=== PATIENT | female | born 1975 | race Caucasian/White ===

== ENCOUNTER 2022-07-28 07:54 | Outpatient (CLI) | payer BC, SELFPAY ==
--- NOTE | 2022-07-28 08:15 | CRLHL7_ITS ---
For Patients: As a result of the Century Cures Act, medical imaging exams and procedure reports are released immediately into your electronic medical record. You may view this report before your referring provider. If you have questions, please contact your health care provider. BILATERAL SCREENING MAMMOGRAM WITH COMPUTER-AIDED DETECTION TECHNIQUE: CC and MLO views were obtained. These mammographic images have been obtained using full-field digital technique. These mammographic images were interpreted with the benefit of computer-aided detection. COMPARISON FILM: 02/12/18. FINDINGS: There are scattered areas of fibroglandular density. IMPRESSION: There is no radiographic evidence for malignancy. ASSESSMENT: BI-RADS Category 2: Benign RECOMMENDATION: Routine screening mammogram in 1 year. A lay language report of this examination will be provided to the patient. NORMAN GRANADOS M.D. Diagnostic Radiologist [email or web address]/[email or web address] Transcribed: 07/28/2022, 2:[address]/Dictated by: Norman Granados MD @ 07/28/2022 11:11:00 AM (Electronically Signed)
== END 2022-07-28 07:55 | disposition home or self-care (01) ==
LOC: MAMMO 07:55
PROVIDERS: PCP Physician Assistant Medical; Visit Provider Registered Nurse
DX: Z12.31 Encounter for screening mammogram for malignant neoplasm of breast (principal); Z01.419 Encounter for gynecological examination (general) (routine) without abnormal findings; Z13.6 Encounter for screening for cardiovascular disorders; Z13.1 Encounter for screening for diabetes mellitus; Z13.29 Encounter for screening for other suspected endocrine disorder
CPT/HCPCS: 77063; 77067; 80061; 82947; 84443

== ENCOUNTER 2022-07-28 09:05 | Outpatient (CLI) | payer BC, SELFPAY ==
[2022-07-28 12:12] LABS: Cholesterol* 229 mg/dL (90-199)
[2022-07-28 12:13] LABS: Glucose* 87 mg/dL (60-115); HDL Cholesterol* 91 mg/dL (>=50); LDL Cholesterol Calculated 125 mg/dL (<100); Triglycerides* 63 mg/dL (40-149)
== END 2022-07-28 09:06 | disposition home or self-care (01) ==
PROVIDERS: PCP Physician Assistant Medical; Visit Provider Registered Nurse
DX: Z13.9 Encounter for screening, unspecified (principal)
CPT/HCPCS: 80061; 82947; 84443

== ENCOUNTER 2023-09-24 10:23 | Outpatient (CLI) | payer OTHER, SELFPAY | END 2023-09-24 10:24 | disposition home or self-care (01) | PROVIDERS: PCP Physician Assistant Medical; Visit Provider Physician Assistant Medical | DX: Z13.220 Encounter for screening for lipoid disorders (principal); Z13.228 Encounter for screening for other metabolic disorders; Z13.29 Encounter for screening for other suspected endocrine disorder | CPT/HCPCS: 80053; 80061; 84443 ==

== ENCOUNTER 2023-12-25 17:19 | Outpatient (CLI) | payer OTHER, SELFPAY ==
--- OUTSIDE RECORDS SUMMARY | 2023-12-25 17:21 | XMS_ITS | Clinical Summary ---
Author Organization [employer] [facility] Address [place], [place] [address] Care Team Providers Care Clerical Support Name Role Phone Taisha Burris DO Primary Care Provider Unava ilable Allergies Active Allergy Reactions Criticality Noted Date Comments Banana Itching 04/11/2018 Clams *Unknown 04/11/2018 Egg Itching 04/11/2018 Tree Nut *Unknown 04/11/2018 BRAZIL NUT [place] Oil *Unknown 04/11/2018 Wheat Bran *Unknown 04/11/2018 Medications Medication Sig Dispensed Refills Start Date End Date Status loratadine (CLARITIN) 10 mg tablet Take 10 mg by mouth once daily. Active multivitamin (MVI) tablet Take 1 tablet by mouth once daily. Active HYDROcodone-acetam inophen, 5-325 mg, (NORCO) per tabletIndications: Malignant melanoma of left ear (HC) Take 1-2 tablets by mouth every 4 hours if needed for Pain Max acetaminophen dose: 4000 mg in 24 hrs. 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 Social History Tobacco Use Types Packs/Day Years Used Date Smoking Tobacco: Never Assessed Sex and Gender Information Value Date Recorded Sex Assigned at Not on file Gender Identity Not on file Sexual Orientation Not on file Obstetrics History Last Filed Vital Signs Vital Sign Reading Time Taken Comments Blood Pressure 120/83 04/12/2018 3:00 PM CDT Pulse 104 04/12/2018 3:00 PM CDT Temperature 36.9 ??C (98.4 ??F) 04/12/2018 1:48 PM CD T Respiratory Rate 16 04/12/2018 3:00 PM CDT Oxygen Saturation 99% 04/12/2018 3:00 PM CDT Inhaled Oxygen Concentration - - Weight 72.6 kg (160 lb) 04/12/2018 12:00 PM CDT Height 157.5 cm (5' 2) 04/12/2018 12:00 PM CDT Body Mass Index 29.26 04/12/2018 12:00 PM CDT Plan of Treatment Health Maintenance Due Date Last Done Comments Tdap 1984 Depression screening for age 12+ 1985 HIV for age 15-65 1988 BMI (ht and wt on same day) for age 18+ 10/18/1991 Hepatitis C screening for ag e 18-79 10/18/1991 Tetanus booster 1993 Colonoscopy through age 75 2018 Lipids for age 45-75 2018 Mammogram for age 45-75 2018 COVID-19 vaccine series (2022-24 season) 2023 Zoster (shingles) series for age 50+ (1 of 2) 10/18/2023 Influenza for age 50-64 03/16/2024 Pap test for age 21-65 07/28/2025 3, 07/28/2022 Pneumococcal series for age 6-64 Aged Out No longer eligible b ased on patient's age to complete this topic Procedures Procedure Name Priority Date/Time Associated Diagnosis Comments HPV THIN PREP Routine 07/28/2022 12:00 PM PUMP PRESS OPERATOR from Last 3 Months or Most Recently Relevant to Health Maintenance Results * HPV HIGH RISK (07/28/2022 12:00 PM PUMP PRESS OPERATOR) TYPE 16 Negative Negative 08/02/2022 2:46 PM PUMP PRESS OPERATOR [facility] TYPE 18 Negative Negative 08/02/2022 2:46 PM PUMP PRESS OPERATOR [facility] OTHER HIGH RISK TYPES Negative Negative 08/02/2022 2:46 PM PUMP PRESS OPERATOR [facility] Other (Cervical) 07/28/2022 12:00 PM PUMP PRESS OPERATOR 07/31/2022 10:28 AM PUMP PRESS OPERATOR Narrative [facility] - 08/02/2022 2:46 PM PUMP PRESS OPERATOR HPV types 16, 18, 31, 33, 35, 39, 45, 51, 52, 56, 58, 59, 66 and 68 DNA were undetectable or below the pre-set threshold. Methodology: Tierra Job 4800 HPV Test Loreta Kenny NANOSCIENCE TECHNICIAN MICROBIOLOGY [facility] [address] [place] [address], from Last 3 Months or Most Recently Relevant to Health Maintenance Advance Directives * Full Code (Latest Code Status on File) Date Activated Date Inactivated Comments 04/12/2018 11:44 AM 04/13/2018 2:30 AM Care Teams Clerical Support Relationship Specialty Start Date End Date Taisha Burris DO PCP - General 05/05/09
--- NOTE | 2023-12-25 17:40 | CRLHL7_ITS ---
For Patients: As a result of the Century Cures Act, medical imaging exams and procedure reports are released immediately into your electronic medical record. You may view this report before your referring provider. If you have questions, please contact your health care provider. BILATERAL SCREENING MAMMOGRAM WITH COMPUTER-AIDED DETECTION AND TOMOSYNTHESIS TECHNIQUE: CC and MLO views were obtained. These mammographic images have been obtained using full-field digital technique. These mammographic images were interpreted with the benefit of computer-aided detection. Breast Tomosynthesis was used in this interpretation. COMPARISON FILM: 07/28/22, 02/12/18. FINDINGS: There are scattered areas of fibroglandular density. IMPRESSION: There is no radiographic evidence for malignancy. ASSESSMENT: BI-RADS Category 1: Negative RECOMMENDATION: Routine screening mammogram in 1 year. A lay language report of this examination will be provided to the patient. Norman Rodriguez M.D. Diagnostic Radiologist [email or web address] SP/Dictated by: Norman Rodriguez MD @ 12/31/2023 9:15:00 AM (Electronically Signed)
== END 2023-12-25 17:20 | disposition home or self-care (01) ==
LOC: MAMMO 17:19
PROVIDERS: PCP Physician Assistant Medical; Visit Provider Physician Assistant Medical
DX: Z12.31 Encounter for screening mammogram for malignant neoplasm of breast (principal)
CPT/HCPCS: 77063; 77067

== ENCOUNTER 2024-01-14 08:00 | Outpatient (CLI) | payer OTHER, SELFPAY ==
--- OUTSIDE RECORDS SUMMARY | 2024-01-14 08:01 | XMS_ITS | Clinical Summary ---
Author Organization [employer] [facility] Address [place], [place] [address] Care Team Providers Care Nursing Service Director Name Role Phone Taisha Burris DO Primary Care Provider Unava ilable Allergies Active Allergy Reactions Criticality Noted Date Comments Banana Itching 04/11/2018 Clams *Unknown 04/11/2018 Egg Itching 04/11/2018 Tree Nut *Unknown 04/11/2018 BRAZIL NUT [place] Oil *Unknown 04/11/2018 Wheat Bran *Unknown 04/11/2018 [...] HPV THIN PREP Routine 07/28/2022 12:00 PM HYDROLOGY TECHNICIAN from Last 3 Months or Most Recently Relevant to Health Maintenance Results * HPV HIGH RISK (07/28/2022 12:00 PM HYDROLOGY TECHNICIAN) TYPE 16 Negative Negative 08/02/2022 2:46 PM HYDROLOGY TECHNICIAN [facility] TYPE 18 Negative Negative 08/02/2022 2:46 PM HYDROLOGY TECHNICIAN [facility] OTHER HIGH RISK TYPES Negative Negative 08/02/2022 2:46 PM HYDROLOGY TECHNICIAN [facility] Other (Cervical) 07/28/2022 12:00 PM HYDROLOGY TECHNICIAN 07/31/2022 10:28 AM HYDROLOGY TECHNICIAN Narrative [facility] - 08/02/2022 2:46 PM HYDROLOGY TECHNICIAN HPV types 16, 18, 31, 33, 35, 39, 45, 51, 52, 56, 58, 59, 66 and 68 DNA were undetectable or below the pre-set threshold. Methodology: Tierra Job 4800 HPV Test Loreta Kenny ORTHO RN MICROBIOLOGY [facility] [address] [place] [address], from Last 3 Months or Most Recently Relevant to Health Maintenance Advance Directives * Full Code (Latest Code Status on File) Date Activated Date Inactivated Comments 04/12/2018 11:44 AM 04/13/2018 2:30 AM Care Teams Nursing Service Director Relationship Specialty Start Date End Date Taisha Burris DO PCP - General 05/05/09
--- NOTE | 2024-01-14 09:30 | W.ANESCHARGE ---
Anesthesia Charges Start Date/Time Anesthesia Start Date: 01/14/24 Anesthesia Start Time: 09:00 Stop Date/Time Anesthesia Stop Date: 01/14/24 Anesthesia Stop Time: 09:28
--- NOTE | 2024-01-14 09:47 | W.ANESCHARGE ---
Anesthesia Charges Start Date/Time Anesthesia Start Date: 01/14/24 Anesthesia Start Time: 09:00 Stop Date/Time Anesthesia Stop Date: 01/14/24 Anesthesia Stop Time: 09:28
== END 2024-01-14 08:01 | disposition home or self-care (01) ==
LOC: OP CLINIC 08:00
PROVIDERS: PCP Physician Assistant Medical; Visit Provider Surgery
DX: Z12.11 Encounter for screening for malignant neoplasm of colon (principal); K63.89 Other specified diseases of intestine; K57.30 Diverticulosis of large intestine without perforation or abscess without bleeding
CPT/HCPCS: 00811; 45380; 88305

== ENCOUNTER 2025-02-04 10:19 | Outpatient (CLI) | payer OTHER, SELFPAY | END 2025-02-04 10:20 | disposition home or self-care (01) | LOC: NFLDREF 02-05 03:08 | PROVIDERS: PCP Physician Assistant Medical; Referring Provider Physician Assistant Medical; Visit Provider Physician Assistant Medical | DX: Z00.00 Encounter for general adult medical examination without abnormal findings (principal); Z79.899 Other long term (current) drug therapy; Z13.29 Encounter for screening for other suspected endocrine disorder; Z13.6 Encounter for screening for cardiovascular disorders | CPT/HCPCS: 80053; 80061; 82306; 84443 ==

== ENCOUNTER 2025-04-16 15:16 | Outpatient (CLI) | payer OTHER, SELFPAY ==
--- NOTE | 2025-04-16 15:40 | CRLHL7_ITS ---
For Patients: As a result of the Century Cures Act, medical imaging exams and procedure reports are released immediately into your electronic medical record. You may view this report before your referring provider. If you have questions, please contact your health care provider. INDICATION: BILATERAL SCREENING MAMMOGRAM, ASYMPTOMATIC 49 Y/O FEMALE COMPARISON: 12/25/2023, 07/28/2022, 02/12/2018 TECHNIQUE: Digital mammogram in CC and MLO projections including computer-aided detection (CAD) and tomosynthesis. BREAST COMPOSITION: There are scattered areas of fibroglandular density. FINDINGS: No suspicious findings. ASSESSMENT: BI-RADS 1 Negative RECOMMENDATION: Annual screening mammogram. A lay language report of this examination will be provided to the patient. Dictated by: Norman Rodriguez MD @ 04/17/2025 10:08:29 (Electronically Signed)
== END 2025-04-16 15:17 | disposition home or self-care (01) ==
LOC: MAMMO 15:18
PROVIDERS: PCP Physician Assistant Medical; Visit Provider Physician Assistant Medical
DX: Z12.31 Encounter for screening mammogram for malignant neoplasm of breast (principal)
CPT/HCPCS: 77063; 77067